=== PATIENT | female | born 1955 | race Caucasian/White ===

== ENCOUNTER 2021-03-27 10:01 | Day surgery (SDC) | payer MEDICARE, OTHER ==
[2021-03-25 08:50] LABS: COVID AG,FIA SOURCE NASAL SWAB
[~2021-03-27] VITALS: Ht 165.1 cm; Wt 62.7 kg
[~2021-03-27 10:01] MED LIST: SODIUM CHLORIDE 0.9% 1,000 ML IV ONE; SODIUM CHLORIDE 0.9% 1,000 ML ONE; TRAZ-252 PO
[2021-03-27] MEDS ORDERED: LIDOCAINE/PF 2% 5 ML VIAL IM ONE (10:02)
[2021-03-27] MEDS ORDERED: PROPOFOL 1% 20 ML VIAL IVP ONE (10:02)
[2021-03-27] MEDS ORDERED: FentaNYL CITRATE PF 100 MCG/2 ML VIAL ONE (11:29)
[2021-03-27] MEDS ORDERED: OXYGEN THERAPY IH SCH (20:00)
== END 2021-03-27 13:40 | disposition home or self-care (01) ==
LOC: SURGERY 10:01
PROVIDERS: ATTEND Specialist
DX: Z09 Encounter for follow-up examination after completed treatment for conditions other than malignant neoplasm (principal); D12.3 Benign neoplasm of transverse colon; K63.89 Other specified diseases of intestine; K57.30 Diverticulosis of large intestine without perforation or abscess without bleeding; F41.9 Anxiety disorder, unspecified; B18.2 Chronic viral hepatitis C; Z87.11 Personal history of peptic ulcer disease; Z79.82 Long term (current) use of aspirin; Z88.6 Allergy status to analgesic agent; Z88.0 Allergy status to penicillin; Z88.8 Allergy status to other drugs, medicaments and biological substances; Z86.010 Personal history of colon polyps; Z98.890 Other specified postprocedural states; Z80.0 Family history of malignant neoplasm of digestive organs; Z79.899 Other long term (current) drug therapy; Z87.891 Personal history of nicotine dependence; F32.9 Major depressive disorder, single episode, unspecified
CPT/HCPCS: 45385; 87426; 88305; C1769; C9803; J2704; J3490; J7030; J3010